=== PATIENT | male | born 1985 | race Caucasian/White ===

== ENCOUNTER 2018-09-14 16:39 | Emergency (ER) | payer OTHER ==
[~2018-09-14] VITALS: Ht 180.3 cm; Wt 78.5 kg
[2018-09-14 16:39] VITALS: BP 127/82
--- NOTE | 2018-09-14 16:47 | NUR ---
PT TO ER BED 5
--- NOTE | 2018-09-14 17:05 | NUR ---
PT BIB SELF FOR DIZZYNESS X2 HOURS. PT REPORTS FEELING DIZZY WHILE DRIVING TO FRIENDS HOUSE. 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 BS 102. VSS. ER TO SEE PT. MEDHX:NONE RX:NONE
[2018-09-14 18:30] VITALS: BP 120/76
== END 2018-09-14 18:31 | disposition home or self-care (01) ==
LOC: MED 16:39
DX: R06.4 Hyperventilation (principal); F41.9 Anxiety disorder, unspecified
CPT/HCPCS: 82948; 99282